=== PATIENT | male | born 1980 | race Caucasian/White ===

== ENCOUNTER 2018-02-23 08:28 | Emergency (ER) | payer OTHER ==
--- NOTE | 2018-02-23 08:46 | EDPHY ---
H & P Stated Complaint: PS Time Seen by Provider: 02/23/18 08:45 HPI/ROS: CHIEF COMPLAINT: HISTORY OF PRESENT ILLNESS: REVIEW OF SYSTEMS: A ten system review of systems was performed and is negative with the exception of the items mentioned in the HPI. Past medical history: Past surgical history: Family history: Social history: General Appearance: Alert. Vital signs reviewed. Eyes: Pupils equal and round, no conjunctival injection, no discharge. Anicteric. ENT, Mouth: Mucous membranes are moist, no oropharyngeal erythema or edema. Neck: No lymphadenopathy, supple. Respiratory: Lungs are clear to auscultation; no wheezes, rales, or rhonchi. Cardiovascular: Regular rate and rhythm; no murmur, rub, or gallop. Gastrointestinal: Abdomen is soft and nontender, no masses or organomegaly, bowel sounds normal. Skin: Warm and dry, no rashes on exposed skin, normal color. Back: Nontender to palpation over the thoracolumbar spine. No CVAT. Extremities: No lower extremity edema, no calf tenderness or swelling. Neurological: Alert and oriented. Moving all four extremities easily and equally. Psychiatric: Normal affect. - Personal History Current Tetanus/Diphtheria Vaccine: Yes - Medical/Surgical History Hx Asthma: No Hx Chronic Respiratory Disease: No Hx Diabetes: No Hx Cardiac Disease: No Hx Renal Disease: No Hx Cirrhosis: No Hx Alcoholism: No Other PMH: cluster SR - Social History Smoking Status: Former smoker Constitutional: Initial Vital Signs Temperature (C) 36.8 C 02/23/18 08:38 Heart Rate 66 02/23/18 08:38 Respiratory Rate 18 02/23/18 08:38 Blood Pressure 126/74 H 02/23/18 08:38 O2 Sat (%) 93 02/23/18 08:38 O2 Delivery Mode Room Air Allergies/Adverse Reactions: erythromycin base [Erythromycin Base] Allergy (Verified 02/23/18 08:40) Home Medications: Medication Instructions Recorded Cephalexin [Keflex] 500 mg PO TID 7 Days cap 12/04/17 Imitrex 12/04/17 Departure - Departure Condition: Fair Referrals: NONE *PRIMARY CARE P,. [Primary Care Provider] - As per Instructions Physician Review and Approval Statement: 02/23/18 08:46 Portions of this note were transcribed by the biomedical instrument technician. I, Dr. Ashley Cabeen, personally performed the history, physical exam, and medical decision- making; and confirmed the accuracy of the information in the transcribed note.
[2018-02-23 09:31] LABS: PLATELET COUNT 252 10^3/uL (150-400)
--- NOTE | 2018-02-23 09:43 | EDPHY ---
H & P Time Seen by Provider: 02/23/18 08:45 HPI/ROS: CHIEF COMPLAINT: Depression, feeling suicidal HISTORY OF PRESENT ILLNESS: 37-year-old male presents to the emergency department voluntarily by private vehicle feeling depressed and suicidal. The patient is feeling overwhelmed. He is currently going through a divorce. He states that he has felt increasingly depressed and has thoughts of "drinking himself to ". [place] and states "I feel very isolated". 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 Denies homicidal ideation. Denies auditory visual hallucinations. He has seen his primary care provider for this who recommended that he does yoga. He in the past has also been recommended to take an antidepressant, however he did not fall through with this. He currently has no physical complaints. Denies pain in his chest or difficulty breathing. Denies abdominal pain. No reported trauma. REVIEW OF SYSTEMS: Constitutional: No fever, no chills. Eyes: No double or blurry vision. ENT: No sore throat. Respiratory: No cough, no shortness of breath. Cardiac: No chest pain. Gastrointestinal: No abdominal pain, vomiting or diarrhea. Genitourinary: No dysuria. Musculoskeletal: No neck or back pain. Skin: No rashes. Neurological: No headache. Past Medical/Surgical History: Orthopedic surgeries Social History: Currently going through divorce. Has 8-year-old twin girls Smoking Status: Former smoker Physical Exam: General Appearance: Alert, no distress. Tearful. Eyes: Pupils equal and round. Extraocular motions are all intact. ENT: Mouth: Mucous membranes moist. Respiratory: No wheezing, rhonchi, or rales, lungs are clear to auscultation. Cardiovascular: Regular rate and rhythm. Gastrointestinal: Abdomen is soft and nontender, no masses, no rebound or guarding, bowel sounds normal. Neurological: Alert and oriented x 3, cranial nerves II through XII grossly intact Skin: Warm and dry, no rashes. Musculoskeletal: Nontender to palpate along the cervical, thoracic or lumbar spine. Neck is supple. Extremities: Full range of motion and no peripheral edema. Psychiatric: Patient is oriented X 3, there is no agitation. Constitutional: Initial Vital Signs Temperature (C) 36.8 C 02/23/18 08:38 Heart Rate 66 02/23/18 08:38 Respiratory Rate 18 02/23/18 08:38 Blood Pressure 126/74 H 02/23/18 08:38 O2 Sat (%) 93 02/23/18 08:38 O2 Delivery Mode Room Air Allergies/Adverse Reactions: erythromycin base [Erythromycin Base] Allergy (Verified 02/23/18 08:40) Home Medications: Medication Instructions Recorded Cephalexin [Keflex] 500 mg PO TID 7 Days cap 12/04/17 Imitrex 12/04/17 Medical Decision Making ED Course/Re-evaluation: The patient is feeling depressed. He has made suicidal statements. He was placed on an M1 hold. He contracts for safety. He will be evaluated by mental health once he is medically cleared. The patient was evaluated by mental health. Kept on M1 hold. They are looking for placement. Differential Diagnosis: Depression including functional and major depression, situational depression, medication side effect, drugs and alcohol abuse. - Data Points Laboratory Results: Laboratory Results 02/23/18 08:55 02/23/18 08:55 02/23/18 02/23/18 02/23/18 09:40 08:55 08:55 WBC RBC Hgb Hct MCV MCH MCHC RDW Plt Count MPV Neut % (Auto) Lymph % (Auto) Liberty % (Auto) Eos % (Auto) Baso % (Auto) Nucleat RBC Rel Count Absolute Neuts (auto) Absolute Lymphs (auto) Absolute Monos (auto) Absolute Eos (auto) Absolute Basos (auto) Absolute Nucleated RBC Immature Gran % Immature Gran # Sodium Potassium Chloride Carbon Dioxide Anion Gap BUN Creatinine Estimated GFR Glucose Calcium TSH 0.810 uIU/mL uIU/mL (0.465-4.680) Urine Opiates Screen NEGATIVE (NEGATIVE) Urine Barbiturates NEGATIVE (NEGATIVE) Ur Phencyclidine Scrn NEGATIVE (NEGATIVE) Ur Amphetamine Screen NEGATIVE (NEGATIVE) U Benzodiazepines Scrn NEGATIVE (NEGATIVE) Urine Cocaine Screen NEGATIVE (NEGATIVE) U Marijuana (THC) Screen NON-NEGATIVE H (NEGATIVE) Ethyl Alcohol 14 mg/dL H mg/dL (0-10) 02/23/18 02/23/18 08:55 08:55 WBC 6.64 10^3/uL 10^3/uL (3.80-9.50) RBC 4.74 10^6/uL 10^6/uL (4.40-6.38) Hgb 14.3 g/dL g/dL (13.7-17.5) Hct 42.1 % % (40.0-51.0) MCV 88.8 fL fL (81.5-99.8) MCH 30.2 pg pg (27.9-34.1) MCHC 34.0 g/dL g/dL (32.4-36.7) RDW 13.0 % % (11.5-15.2) Plt Count 252 10^3/uL 10^3/uL (150-400) MPV 9.5 fL fL (8.7-11.7) Neut % (Auto) 71.6 % % (39.3-74.2) Lymph % (Auto) 19.4 % % (15.0-45.0) Liberty % (Auto) 6.3 % % (4.5-13.0) Eos % (Auto) 1.4 % % (0.6-7.6) Baso % (Auto) 0.8 % % (0.3-1.7) Nucleat RBC Rel Count 0.0 % % (0.0-0.2) Absolute Neuts (auto) 4.76 10^3/uL 10^3/uL (1.70-6.50) Absolute Lymphs (auto) 1.29 10^3/uL 10^3/uL (1.00-3.00) Absolute Monos (auto) 0.42 10^3/uL 10^3/uL (0.30-0.80) Absolute Eos (auto) 0.09 10^3/uL 10^3/uL (0.03-0.40) Absolute Basos (auto) 0.05 10^3/uL 10^3/uL (0.02-0.10) Absolute Nucleated RBC 0.00 10^3/uL 10^3/uL (0-0.01) Immature Gran % 0.5 % % (0.0-1.1) Immature Gran # 0.03 10^3/uL 10^3/uL (0.00-0.10) Sodium 142 mEq/L mEq/L (135-145) Potassium 4.6 mEq/L mEq/L (3.3-5.0) Chloride 108 mEq/L mEq/L (97-110) Carbon Dioxide 22 mEq/l mEq/l (22-31) Anion Gap 12 mEq/L mEq/L (8-16) BUN 13 mg/dL mg/dL (7-23) Creatinine 0.9 mg/dL mg/dL (0.7-1.3) Estimated GFR > 60 Glucose 89 mg/dL mg/dL (70-100) Calcium 9.7 mg/dL mg/dL (8.5-10.4) TSH Urine Opiates Screen Urine Barbiturates Ur Phencyclidine Scrn Ur Amphetamine Screen U Benzodiazepines Scrn Urine Cocaine Screen U Marijuana (THC) Screen Ethyl Alcohol Departure - Departure Disposition: Other Psych, Not [place] Clinical Impression: Suicidal ideation Depression Qualifiers: Depression Type: unspecified Qualified Code(s): F32.9 - Major depressive disorder, single episode, unspecified Condition: Fair Referrals: NONE *PRIMARY CARE P,. [Primary Care Provider] - As per Instructions
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
--- NOTE | 2018-02-23 15:50 | ASMTTCLDSP ---
TLC Discharge Disposition Disposition: Answers: Transfer Disposition Notes: Notes: In consultation with [facility] ED physician, Ashley Low MD and [facility] ED PA, [place] Black both concurred that pt appears to meet 27-65 criteria requiring psychiatric hospitalization as pt appears to be at risk of harm to self due to a mental illness condition. Type of Hold: Answers: M1/72-hour Hold Hold initiated by: Answers: ED Physician For Transfers, Accepting [facility] Facility: For Transfers, Accepting [facility] Psych[facility]rist: For Transfers, Reason no beds on /[facility] Patient is Being Transferred: Date Signed: 02/23/2018 03:49 PM Electronically Signed By:Mariela Salazar
[2018-02-23 16:35] VITALS: BP 137/86
== END 2018-02-23 17:20 ==
PROC: GZ11ZZZ Psychological Tests, Personality and Behavioral (ICD-10-PCS; principal; 2018-02-23)
DX: F32.9 Major depressive disorder, single episode, unspecified (principal); R45.851 Suicidal ideations
CPT/HCPCS: 80305; G0480